=== PATIENT | female | born 1975 | race Caucasian/White ===

== ENCOUNTER 2017-02-13 01:30 | Emergency (ER) | payer SELFPAY ==
--- NOTE | 2017-02-13 02:12 | ED ORDER SUMMARY ---
..... Patient: KENRICK WAGGONER OrderSheet [facility] VisitID: [id number] [address] [place] [address] 41y, F Registration Date/Time: 02/13/2017 ORDER SHEET Weight: 78.0 kg Allergies: Penicillins, Sulfa Antibiotics, Tetanus Toxoids GENERAL ORDERS: MEDICATION ORDERS: Lidocaine Viscous PO (Solution 2 %) 15 mL (NOW) (01:02/13/2017 Manuel Bacon) (2:02 Gina R.N.) Clindamycin IM 600 mg (NOW) (:02/13/2017 Manuel Bacon) (2:02 Gina R.N.) IV FLUIDS: ORDER SHEET NOTES: [Electronically signed by Jerrod Nicholson Dr. (02:16 02/13/2017)] [Electronically signed by Marayna Long R.N. (02:02/13/2017)] [Electronically locked/signed by Maryana Long R.N. (02:02/13/2017)]
--- NOTE | 2017-02-13 02:12 | ED NURSING NOTES ---
Clinical Report - Nurses [facility] [address] [place] [address] 02/13/2017 1:32 Patient: KENRICK WAGGONER TRIAGE Triage time 01:44. Acuity: LEVEL 3. Chief Complaint: SKIN LESION. --01:48 TonyaB, R.N. 01:44 02/13/17. BP: 150/63. HR: 97. RR: 18. O2 saturation: 99%. Temp: 98.4 F. Pain level now: 07/03. --01:48 TonyaB, R.N. Weight: 78 kg. Height/Length: 68 inches. BMI: 26.2. --01:47 TonyaB, R.N. Medications None. --01:45 TonyaB, R.N. Allergies Penicillins. Sulfa Antibiotics. Tetanus Toxoids. --01:46 TonyaB, R.N. History Arrived by private vehicle. Historian: patient. This started today. ( pt has open sores on her face, right hand, abd and right thigh). 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 PAST MEDICAL HX: Last normal menstrual period- 2 weeks ago. SOCIAL HX: Light tobacco smoker- less than 1/2 a pack per day. Alcohol use; consumes beer occasionally. History of heavy drug use: methamphetamines. Recently used drugs today. No infectious disease exposure. SELF HARM ASSESSMENT: A self harm assessment was performed. The patient answered "no" to the question "Have you recently felt down, depressed, or hopeless?", "Have you noticed less interest or pleasure in doing things?", "Do you have thoughts of harming or killing yourself?", "Are you here because you tried to hurt yourself?", "Have you ever tried to hurt yourself before today?", "Have you recently had thoughts about harming or killing others?" and "Do you have any dangerous items in your possession?". FALL RISK ASSESSMENT: Fall risk assessment completed. No fall risk identified. NUTRITIONAL RISK ASSESSMENT: The nutritional risk assessment revealed no deficiencies. FUNCTIONAL ASSESSMENT: Functional assessment: no impairments noted. LEARNING NEEDS ASSESSMENT: The learning needs assessment revealed no barriers. ABUSE ASSESSMENT: Abuse assessment: The patient was asked "Do you feel safe in your home?". SKIN INTEGRITY ASSESSMENT: Skin integrity risk assessment completed. No skin integrity risk identified. --01:48 Colby Sahu PROBLEMS: no known problems. ADDITIONAL SURGERIES: Carpal Tunnel Surgery. Tonsillectomy. --01:46 Cloby Sahu Interventions ID band on patient. To treatment room. --01:48 Colby Sahu PHYSICAL ASSESSMENT Ambulatory to room. GENERAL / NEURO / PSYCH: Alert. Oriented X 4. Appears in no acute distress. HEENT: Pupils equal, round and reactive to light. No facial asymmetry noted. Mucous membranes are pink. RESPIRATORY: Respirations not labored. Chest nontender. Breath sounds within normal limits. CVS: Normal sinus rhythm noted. Capillary refill less than 2 seconds. Pulses within normal limits. GI / : Abdomen soft and nontender and normal bowel sounds. SKIN: Skin is warm and dry. Skin rash located on the face, right arm and right leg and abdomen. Normal skin turgor. Erythema to right hand. --01:49 Colby Sahu NURSING PROGRESS NOTES Patient identifiers checked. Call light placed in reach. Side rails up x 1. Bed placed in lowest position. Brakes of bed on. --01:49 Colby Sahu 02:02/13/2017 Lidocaine Viscous PO 15 mL given. Allergies verified and confirmed 5 rights. --02:02 Colby Sahu 02:02/13/2017 Clindamycin IM 600 mg given. Given in the right ventral gluteus and left ventral gluteus. Allergies verified and confirmed 5 rights. --02:02 Colby Sahu DISPOSITION / DISCHARGE Departure time: 02:21. Condition at departure: improved. No learning barriers present. Discharge instructions provided and reviewed with the patient. Reviewed medication(s) side effects, precautions, dosing and course information. Prescription(s) given to the patient. Patient verbalized understanding. Written instructions provided in Swedish. No warning instructions, treatment instructions, referrals given to the patient, diet instructions or activity restrictions. No follow up contact number given or stop smoking instructions. No work note given. The patient was discharged by the physician. She was discharged home. She left the Emergency Department ambulatory and via (walking). FALL RISK ASSESSMENT: Fall risk assessment completed. No fall risk identified. --02:22 Colby Sahu 02:22 02/13/17. BP: deferred. HR: deferred. RR: deferred. O2 saturation: deferred. Temp: deferred. Pain level now deferred. --02:22 Colby Sahu Locked/Released at 02/13/2017 2:22 by Colby Sahu
--- NOTE | 2017-02-13 02:12 | ED CLINICAL REPORT ---
Clinical Report - Physicians/Mid Levels [facility] [address] [place] [address] 02/13/2017 1:32 Patient: KENRICK WAGGONER Time Seen: 0138; initial patient contact. Arrived- By private vehicle. Historian- patient. HISTORY OF PRESENT ILLNESS Chief Complaint: SKIN RASH. This started several days ago and is still present. It was gradual in onset. It is described as itchy and painful. It has been located on the face, trunk, right upper extremity, left upper extremity and right lower extremity. It has been located on the left lower extremity. No cause has been identified. No recent medication or insect bite. Similar symptoms previously: Many times. Recent medical care: Not recently seen/assessed. REVIEW OF SYSTEMS No fever, chills, difficulty breathing, enlarged lymph nodes or nausea. No vomiting. All systems otherwise negative, except as recorded above. PAST HISTORY PROBLEMS: no known problems. SURGERIES: Carpal Tunnel Surgery. Tonsillectomy. Problems: no known problems. Medications: None. Allergies: Penicillins. Sulfa Antibiotics. Tetanus Toxoids. SOCIAL HISTORY Current every day smoker. Occasional alcohol use. History of drug use: methamphetamines. Recently used drugs today. Under influence in ED. ADDITIONAL NOTES The nursing notes have been reviewed. PHYSICAL EXAM Vital Signs: 02/13/2017 01:44 BP: 150/63. HR: 97. RR: 18. O2 saturation: 99%. Temp: 98.4 F. Pain level now: 10/10. Have been reviewed. Hypertensive. Heart rate normal. Respiratory rate normal. Temperature normal. Oxygen saturation normal. Appearance: Alert. Oriented X3. No acute distress. CVS: Normal heart rate and rhythm. Heart sounds normal. Respiratory: No respiratory distress. Breath sounds normal. Skin: No tender indurated area. Cellulitis. The rash is generalized. The rash is patchy. There is lymphangitis and weeping. No abscess. Neuro: Oriented X 3. PROGRESS AND PROCEDURES Disposition: Discharged home in good condition. Condition: good. CLINICAL IMPRESSION Cellulitis of the scalp, abdominal wall, left hand and left thigh. INSTRUCTIONS Prescription Medications: Clindamycin 300 mg: take 1 capsule orally every 6 hours for 7 days. No refill. Mupirocin 2% ointment: apply small amount to affected area three times daily until symptoms resolved. Dispense twenty-two (22) grams. No refills. Diflucan 150 mg tablets: take 1 tablet orally for 1 day. No refill. Substitution is permissible. Follow-up: Screening today revealed the patient's blood pressure to be in the hypertensive range. The patient should follow up with a primary care provider for blood pressure management. Follow-up with: [facility], , , [address], , [place], [address] Follow up in about two days. Call for an appointment. (Electronically signed by Jerrod Nicholson Dr. 02/13/2017 2:16)
--- NOTE | 2017-02-13 02:12 | ED NURSING NOTES ---
Clinical Report - Nurses [facility] [address] [place] [address] 02/13/2017 1:32 Patient: KENRICK WAGGONER TRIAGE Triage time 01:44. Acuity: LEVEL 3. Chief Complaint: SKIN LESION. --01:48 TonyaB, R.N. 01:44 02/13/17. BP: 150/63. HR: 97. RR: 18. O2 saturation: 99%. Temp: 98.4 F. Pain level now: 07/03. --01:48 TonyaB, R.N. Weight: 78 kg. Height/Length: 68 inches. BMI: 26.2. --01:47 TonyaB, R.N. Medications None. --01:45 TonyaB, R.N. Allergies Penicillins. Sulfa Antibiotics. Tetanus Toxoids. --01:46 TonyaB, R.N. History Arrived by private vehicle. Historian: patient. This started today. ( pt has open sores on her face, right hand, abd and right thigh). 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 PAST MEDICAL HX: Last normal menstrual period- 2 weeks ago. SOCIAL HX: Light tobacco smoker- less than 1/2 a pack per day. Alcohol use; consumes beer occasionally. History of heavy drug use: methamphetamines. Recently used drugs today. No infectious disease exposure. SELF HARM ASSESSMENT: A self harm assessment was performed. The patient answered "no" to the question "Have you recently felt down, depressed, or hopeless?", "Have you noticed less interest or pleasure in doing things?", "Do you have thoughts of harming or killing yourself?", "Are you here because you tried to hurt yourself?", "Have you ever tried to hurt yourself before today?", "Have you recently had thoughts about harming or killing others?" and "Do you have any dangerous items in your possession?". FALL RISK ASSESSMENT: Fall risk assessment completed. No fall risk identified. NUTRITIONAL RISK ASSESSMENT: The nutritional risk assessment revealed no deficiencies. FUNCTIONAL ASSESSMENT: Functional assessment: no impairments noted. LEARNING NEEDS ASSESSMENT: The learning needs assessment revealed no barriers. ABUSE ASSESSMENT: Abuse assessment: The patient was asked "Do you feel safe in your home?". SKIN INTEGRITY ASSESSMENT: Skin integrity risk assessment completed. No skin integrity risk identified. --01:48 Colby Sahu PROBLEMS: no known problems. ADDITIONAL SURGERIES: Carpal Tunnel Surgery. Tonsillectomy. --01:46 Colby Sahu Interventions ID band on patient. To treatment room. --01:48 Colby Sahu PHYSICAL ASSESSMENT Ambulatory to room. GENERAL / NEURO / PSYCH: Alert. Oriented X 4. Appears in no acute distress. HEENT: Pupils equal, round and reactive to light. No facial asymmetry noted. Mucous membranes are pink. RESPIRATORY: Respirations not labored. Chest nontender. Breath sounds within normal limits. CVS: Normal sinus rhythm noted. Capillary refill less than 2 seconds. Pulses within normal limits. GI / : Abdomen soft and nontender and normal bowel sounds. SKIN: Skin is warm and dry. Skin rash located on the face, right arm and right leg and abdomen. Normal skin turgor. Erythema to right hand. --01:49 Colby Sahu NURSING PROGRESS NOTES Patient identifiers checked. Call light placed in reach. Side rails up x 1. Bed placed in lowest position. Brakes of bed on. --01:49 Colby Sahu 02:02/13/2017 Lidocaine Viscous PO 15 mL given. Allergies verified and confirmed 5 rights. --02:02 Colby aShu 02:02/13/2017 Clindamycin IM 600 mg given. Given in the right ventral gluteus and left ventral gluteus. Allergies verified and confirmed 5 rights. --02:02 Colby Sahu DISPOSITION / DISCHARGE Departure time: 02:21. Condition at departure: improved. No learning barriers present. Discharge instructions provided and reviewed with the patient. Reviewed medication(s) side effects, precautions, dosing and course information. Prescription(s) given to the patient. Patient verbalized understanding. Written instructions provided in Polish. No warning instructions, treatment instructions, referrals given to the patient, diet instructions or activity restrictions. No follow up contact number given or stop smoking instructions. No work note given. The patient was discharged by the physician. She was discharged home. She left the Emergency Department ambulatory and via (walking). FALL RISK ASSESSMENT: Fall risk assessment completed. No fall risk identified. --02:22 Colby Sahu 02:22 02/13/17. BP: deferred. HR: deferred. RR: deferred. O2 saturation: deferred. Temp: deferred. Pain level now deferred. --02:22 Colby Sahu Locked/Released at 02/13/2017 2:22 by Colby Sahu
--- NOTE | 2017-02-13 02:12 | ED CLINICAL REPORT ---
Clinical Report - Physicians/Mid Levels [facility] [address] [place] [address] 02/13/2017 1:32 Patient: KENRICK WAGGONER Time Seen: 0138; initial patient contact. Arrived- By private vehicle. Historian- patient. HISTORY OF PRESENT ILLNESS Chief Complaint: SKIN RASH. This started several days ago and is still present. It was gradual in onset. It is described as itchy and painful. It has been located on the face, trunk, right upper extremity, left upper extremity and right lower extremity. It has been located on the left lower extremity. No cause has been identified. No recent medication or insect bite. Similar symptoms previously: Many times. Recent medical care: Not recently seen/assessed. REVIEW OF SYSTEMS No fever, chills, difficulty breathing, enlarged lymph nodes or nausea. No vomiting. All systems otherwise negative, except as recorded above. PAST HISTORY PROBLEMS: no known problems. SURGERIES: Carpal Tunnel Surgery. Tonsillectomy. Problems: no known problems. Medications: None. Allergies: Penicillins. Sulfa Antibiotics. Tetanus Toxoids. SOCIAL HISTORY Current every day smoker. Occasional alcohol use. History of drug use: methamphetamines. Recently used drugs today. Under influence in ED. ADDITIONAL NOTES The nursing notes have been reviewed. PHYSICAL EXAM Vital Signs: 02/13/2017 01:44 BP: 150/63. HR: 97. RR: 18. O2 saturation: 99%. Temp: 98.4 F. Pain level now: 10/10. Have been reviewed. Hypertensive. Heart rate normal. Respiratory rate normal. Temperature normal. Oxygen saturation normal. Appearance: Alert. Oriented X3. No acute distress. CVS: Normal heart rate and rhythm. Heart sounds normal. Respiratory: No respiratory distress. Breath sounds normal. Skin: No tender indurated area. Cellulitis. The rash is generalized. The rash is patchy. There is lymphangitis and weeping. No abscess. Neuro: Oriented X 3. PROGRESS AND PROCEDURES Disposition: Discharged home in good condition. Condition: good. CLINICAL IMPRESSION Cellulitis of the scalp, abdominal wall, left hand and left thigh. INSTRUCTIONS Prescription Medications: Clindamycin 300 mg: take 1 capsule orally every 6 hours for 7 days. No refill. Mupirocin 2% ointment: apply small amount to affected area three times daily until symptoms resolved. Dispense twenty-two (22) grams. No refills. Diflucan 150 mg tablets: take 1 tablet orally for 1 day. No refill. Substitution is permissible. Follow-up: Screening today revealed the patient's blood pressure to be in the hypertensive range. The patient should follow up with a primary care provider for blood pressure management. Follow-up with: [facility], , , [address], , [place], [address] Follow up in about two days. Call for an appointment. (Electronically signed by Jerrod Nicholson Dr. 02/13/2017 2:16)
--- NOTE | 2017-02-13 02:12 | ED ORDER SUMMARY ---
..... Patient: KENRICK WAGGONER OrderSheet [facility] VisitID: [id number] [address] [place] [address] 41y, F Registration Date/Time: 02/13/2017 ORDER SHEET Weight: 78.0 kg Allergies: Penicillins, Sulfa Antibiotics, Tetanus Toxoids GENERAL ORDERS: MEDICATION ORDERS: Lidocaine Viscous PO (Solution 2 %) 15 mL (NOW) (01:02/13/2017 Manuel Bacon) (2:02 Gina R.N.) Clindamycin IM 600 mg (NOW) (:02/13/2017 Manuel Bacon) (2:02 Gina R.N.) IV FLUIDS: ORDER SHEET NOTES: [Electronically signed by Jerrod Nicholson Dr. (02:16 02/13/2017)] [Electronically signed by Maryana Long R.N. (02:02/13/2017)] [Electronically locked/signed by Maryana Long R.N. (02:02/13/2017)]
--- NOTE | 2017-02-13 02:22 | ED DISCHARGE INSTRUCTIONS ---
Patient: KENRICK WAGGONER General Instructions [facility] VisitID: [id number] [address] [place] [address] 41y, F Registration Date/Time: 02/13/2017 Cellulitis of the scalp, abdominal wall, left hand and left thigh. INSTRUCTIONS Prescription Medications: Clindamycin 300 mg: take 1 capsule orally every 6 hours for 7 days. No refill. Mupirocin 2% ointment: apply small amount to affected area three times daily until symptoms resolved. Dispense twenty-two (22) grams. No refills. Diflucan 150 mg tablets: take 1 tablet orally for 1 day. No refill. Substitution is permissible. Follow-up: Screening today revealed the patient's blood pressure to be in the hypertensive range. The patient should follow up with a primary care provider for blood pressure management. Follow-up with: [facility], , , [address], , [place], [id number] Follow up in about two days. Call for an appointment. ADDITIONAL INFORMATION Cellulitis You have an infection of the skin known as cellulitis. This usually starts with a scrape, cut, insect bite, blister or other opening in the skin which becomes infected. This is a serious condition. It must be watched closely to be sure the infection is not spreading. With antibiotic treatment, the size of the red area will gradually shrink in size until the skin returns to normal. This will take 7-10 days. The red area should never increase in size once the antibiotic medicine has been started. Occasionally, an infection will be resistant to one antibiotic and another one will have to be used. Home Care: 1) Limit the use of the affected part, since excess movement can cause the infection to spread. 2) If the infection is on your leg, walk as little as possible during the first few days of the treatment. Keep your leg elevated while sitting. This will reduce swelling. 3) Take all of the antibiotic medicine exactly as directed until it is gone. Be careful not to miss any doses, especially during the first seven days. Follow Up with your doctor or this facility as directed. Check the infected area daily for the warning signs listed below. Get Prompt Medical Attention if any of the following occur: -- Spreading area of redness -- Increasing swelling or pain -- Appearance of pus or drainage -- Fever over 100.4 F (38.0 C) oral, or over 101.4 F (38.6 C) rectal, after two days on antibiotics Clindamycin Hydrochloride Oral capsule What is this medicine? CLINDAMYCIN (SUKI Boyd) is a lincosamide antibiotic. It is used to treat certain kinds of bacterial infections. It will not work for colds, flu, or other viral infections. How should I use this medicine? Take this medicine by mouth with a full glass of water. Follow the directions on the prescription label. You can take this medicine with food or on an empty stomach. If the medicine upsets your stomach, take it with food. Take your medicine at regular intervals. Do not take your medicine more often than directed. Take all of your medicine as directed even if you think your are better. Do not skip doses or stop your medicine early. Talk to your yarrow gatherer regarding the use of this medicine in children. Special care may be needed. What side effects may I notice from receiving this medicine? Side effects that you should report to your doctor or health wound care specialist as soon as possible: allergic reactions like skin rash, itching or hives, swelling of the face, lips, or tongue dark urine pain on swallowing redness, blistering, peeling or loosening of the skin, including inside the mouth unusual bleeding or bruising unusually weak or tired yellowing of eyes or skin Side effects that usually do not require medical attention (report to your doctor or health wound care specialist if they continue or are bothersome): diarrhea itching in the rectal or genital area joint pain nausea, vomiting stomach pain What may interact with this medicine? chloramphenicol erythromycin kaolin products What if I miss a dose? If you miss a dose, take it as soon as you can. If it is almost time for your next dose, take only that dose. Do not take double or extra doses. Where should I keep my medicine? Keep out of the reach of children. Store at room temperature between 20 and 25 degrees C (68 and 77 degrees F). Throw away any unused medicine after the expiration date. What should I tell my health care provider before I take this medicine? They need to know if you have any of these conditions: kidney disease liver disease stomach problems like colitis an unusual or allergic reaction to clindamycin, lincomycin, or other medicines, foods, dyes like tartrazine or preservatives or trying to get breast-feeding What should I watch for while using this medicine? Tell your doctor or healthcare professional if your symptoms do not start to get better or if they get worse. Do not treat diarrhea with over the counter products. Contact your doctor if you have diarrhea that lasts more than 2 days or if it is severe and watery. Mupirocin Topical ointment What is this medicine? MUPIROCIN (myoo PEER oh sin) is an antibiotic. It is used on the skin to treat skin infections. How should I use this medicine? This medicine is for external use only. Follow the directions on the prescription label. Wash your hands before and after use. Before applying, wash the affected area with mild soap and water and pat dry. Apply a small amount to the affected area and rub gently. You can cover the area with a gauze dressing. Do not get this medicine in your eyes. If you do, rinse out with plenty of cool tap water. Do not use your medicine more often than directed. Finish the full course of medicine prescribed by your doctor or health wound care specialist even if you think your condition is better. Do not use over large areas of burnt skin. Talk to your yarrow gatherer regarding the use of this medicine in children. Special care may be needed. What side effects may I notice from receiving this medicine? Side effects that you should report to your doctor or health wound care specialist as soon as possible: skin rash, redness, continued swelling, burning, itching, stinging, or pain Side effects that usually do not require medical attention (report to your doctor or health wound care specialist if they continue or are bothersome): dry skin, itching What may interact with this medicine? Interactions are not expected. Do not use any other skin products on the affected area without telling your doctor or health wound care specialist. What if I miss a dose? If you miss a dose, take it as soon as you can. If it is almost time for your next dose, take only that dose. Do not take double or extra doses. Where should I keep my medicine? Keep out of the reach of children. Store at room temperature between 20 and 25 degrees C (68 and 77 degrees F). Throw away any unused medicine after the expiration date. What should I tell my health care provider before I take this medicine? They need to know if you have any of these conditions: an unusual or allergic reaction to mupirocin, polyethylene glycol (PEG), or other topical antibiotic medicine or trying to get breast-feeding What should I watch for while using this medicine? Tell your doctor or health wound care specialist if your skin condition does not begin to improve within 3 to 5 days. Fluconazole Oral tablet What is this medicine? FLUCONAZOLE (floo PILO na zole) is an antifungal medicine. It is used to treat certain kinds of fungal or yeast infections. How should I use this medicine? Take this medicine by mouth. Follow the directions on the prescription label. Do not take your medicine more often than directed. Talk to your yarrow gatherer regarding the use of this medicine in children. Special care may be needed. This medicine has been used in children as young as 6 months of age. What side effects may I notice from receiving this medicine? Side effects that you should report to your doctor or health wound care specialist as soon as possible: allergic reactions like skin rash or itching, hives, swelling of the lips, mouth, tongue, or throat dark urine feeling dizzy or faint irregular heartbeat or chest pain redness, blistering, peeling or loosening of the skin, including inside the mouth trouble breathing unusual bruising or bleeding vomiting yellowing of the eyes or skin Side effects that usually do not require medical attention (report to your doctor or health wound care specialist if they continue or are bothersome): changes in how food tastes diarrhea headache stomach upset or nausea What may interact with this medicine? Do not take this medicine with any of the following medications: cisapride pimozide red yeast rice This medicine may also interact with the following medications: control pills cyclosporine diuretics like hydrochlorothiazide medicines for diabetes that are taken by mouth medicines for high cholesterol like atorvastatin, lovastatin or simvastatin phenytoin ramelteon rifabutin rifampin some medicines for anxiety or sleep tacrolimus terfenadine theophylline tofacitinib warfarin What if I miss a dose? If you miss a dose, take it as soon as you can. If it is almost time for your next dose, take only that dose. Do not take double or extra doses. Where should I keep my medicine? Keep out of the reach of children. Store at room temperature below 30 degrees C (86 degrees F). Throw away any medicine after the expiration date. What should I tell my health care provider before I take this medicine? They need to know if you have any of these conditions: electrolyte abnormalities history of irregular heart beat kidney disease an unusual or allergic reaction to fluconazole, other azole antifungals, medicines, foods, dyes, or preservatives or trying to get breast-feeding What should I watch for while using this medicine? Visit your doctor or health wound care specialist for regular checkups. If you are taking this medicine for a long time you may need blood work. Tell your doctor if your symptoms do not improve. Some fungal infections need many weeks or months of treatment to cure. Alcohol can increase possible damage to your liver. Avoid alcoholic drinks. If you have a vaginal infection, do not have sex until you have finished your treatment. You can wear a sanitary napkin. Do not use tampons. Wear freshly washed cotton, not synthetic, panties. You have been given the following additional information: Cellulitis Clindamycin Hydrochloride Oral capsule Mupirocin Topical ointment Fluconazole Oral tablet (Electronically signed by Jerrod Nicholson Dr. 02/13/2017 2:16)
--- NOTE | 2017-02-13 02:22 | ED DISCHARGE INSTRUCTIONS ---
Patient: KENRICK WAGGONER General Instructions [facility] VisitID: [id number] [address] [place] [address] 41y, F Registration Date/Time: 02/13/2017 Cellulitis of the scalp, abdominal wall, left hand and left thigh. INSTRUCTIONS Prescription Medications: Clindamycin 300 mg: take 1 capsule orally every 6 hours for 7 days. No refill. Mupirocin 2% ointment: apply small amount to affected area three times daily until symptoms resolved. Dispense twenty-two (22) grams. No refills. Diflucan 150 mg tablets: take 1 tablet orally for 1 day. No refill. Substitution is permissible. Follow-up: Screening today revealed the patient's blood pressure to be in the hypertensive range. The patient should follow up with a primary care provider for blood pressure management. Follow-up with: [facility], , , [address], , [place], [id number] Follow up in about two days. Call for an appointment. ADDITIONAL INFORMATION Cellulitis You have an infection of the skin known as cellulitis. This usually starts with a scrape, cut, insect bite, blister or other opening in the skin which becomes infected. This is a serious condition. It must be watched closely to be sure the infection is not spreading. With antibiotic treatment, the size of the red area will gradually shrink in size until the skin returns to normal. This will take 7-10 days. The red area should never increase in size once the antibiotic medicine has been started. Occasionally, an infection will be resistant to one antibiotic and another one will have to be used. Home Care: 1) Limit the use of the affected part, since excess movement can cause the infection to spread. 2) If the infection is on your leg, walk as little as possible during the first few days of the treatment. Keep your leg elevated while sitting. This will reduce swelling. 3) Take all of the antibiotic medicine exactly as directed until it is gone. Be careful not to miss any doses, especially during the first seven days. Follow Up with your doctor or this facility as directed. Check the infected area daily for the warning signs listed below. Get Prompt Medical Attention if any of the following occur: -- Spreading area of redness -- Increasing swelling or pain -- Appearance of pus or drainage -- Fever over 100.4 F (38.0 C) oral, or over 101.4 F (38.6 C) rectal, after two days on antibiotics Clindamycin Hydrochloride Oral capsule What is this medicine? CLINDAMYCIN (SUKI Boyd) is a lincosamide antibiotic. It is used to treat certain kinds of bacterial infections. It will not work for colds, flu, or other viral infections. How should I use this medicine? Take this medicine by mouth with a full glass of water. Follow the directions on the prescription label. You can take this medicine with food or on an empty stomach. If the medicine upsets your stomach, take it with food. Take your medicine at regular intervals. Do not take your medicine more often than directed. Take all of your medicine as directed even if you think your are better. Do not skip doses or stop your medicine early. Talk to your door liner regarding the use of this medicine in children. Special care may be needed. What side effects may I notice from receiving this medicine? Side effects that you should report to your doctor or health customer care agent as soon as possible: allergic reactions like skin rash, itching or hives, swelling of the face, lips, or tongue dark urine pain on swallowing redness, blistering, peeling or loosening of the skin, including inside the mouth unusual bleeding or bruising unusually weak or tired yellowing of eyes or skin Side effects that usually do not require medical attention (report to your doctor or health customer care agent if they continue or are bothersome): diarrhea itching in the rectal or genital area joint pain nausea, vomiting stomach pain What may interact with this medicine? chloramphenicol erythromycin kaolin products What if I miss a dose? If you miss a dose, take it as soon as you can. If it is almost time for your next dose, take only that dose. Do not take double or extra doses. Where should I keep my medicine? Keep out of the reach of children. Store at room temperature between 20 and 25 degrees C (68 and 77 degrees F). Throw away any unused medicine after the expiration date. What should I tell my health care provider before I take this medicine? They need to know if you have any of these conditions: kidney disease liver disease stomach problems like colitis an unusual or allergic reaction to clindamycin, lincomycin, or other medicines, foods, dyes like tartrazine or preservatives or trying to get breast-feeding What should I watch for while using this medicine? Tell your doctor or healthcare professional if your symptoms do not start to get better or if they get worse. Do not treat diarrhea with over the counter products. Contact your doctor if you have diarrhea that lasts more than 2 days or if it is severe and watery. Mupirocin Topical ointment What is this medicine? MUPIROCIN (myoo PEER oh sin) is an antibiotic. It is used on the skin to treat skin infections. How should I use this medicine? This medicine is for external use only. Follow the directions on the prescription label. Wash your hands before and after use. Before applying, wash the affected area with mild soap and water and pat dry. Apply a small amount to the affected area and rub gently. You can cover the area with a gauze dressing. Do not get this medicine in your eyes. If you do, rinse out with plenty of cool tap water. Do not use your medicine more often than directed. Finish the full course of medicine prescribed by your doctor or health customer care agent even if you think your condition is better. Do not use over large areas of burnt skin. Talk to your door liner regarding the use of this medicine in children. Special care may be needed. What side effects may I notice from receiving this medicine? Side effects that you should report to your doctor or health customer care agent as soon as possible: skin rash, redness, continued swelling, burning, itching, stinging, or pain Side effects that usually do not require medical attention (report to your doctor or health customer care agent if they continue or are bothersome): dry skin, itching What may interact with this medicine? Interactions are not expected. Do not use any other skin products on the affected area without telling your doctor or health customer care agent. What if I miss a dose? If you miss a dose, take it as soon as you can. If it is almost time for your next dose, take only that dose. Do not take double or extra doses. Where should I keep my medicine? Keep out of the reach of children. Store at room temperature between 20 and 25 degrees C (68 and 77 degrees F). Throw away any unused medicine after the expiration date. What should I tell my health care provider before I take this medicine? They need to know if you have any of these conditions: an unusual or allergic reaction to mupirocin, polyethylene glycol (PEG), or other topical antibiotic medicine or trying to get breast-feeding What should I watch for while using this medicine? Tell your doctor or health customer care agent if your skin condition does not begin to improve within 3 to 5 days. Fluconazole Oral tablet What is this medicine? FLUCONAZOLE (floo PILO na zole) is an antifungal medicine. It is used to treat certain kinds of fungal or yeast infections. How should I use this medicine? Take this medicine by mouth. Follow the directions on the prescription label. Do not take your medicine more often than directed. Talk to your door liner regarding the use of this medicine in children. Special care may be needed. This medicine has been used in children as young as 6 months of age. What side effects may I notice from receiving this medicine? Side effects that you should report to your doctor or health customer care agent as soon as possible: allergic reactions like skin rash or itching, hives, swelling of the lips, mouth, tongue, or throat dark urine feeling dizzy or faint irregular heartbeat or chest pain redness, blistering, peeling or loosening of the skin, including inside the mouth trouble breathing unusual bruising or bleeding vomiting yellowing of the eyes or skin Side effects that usually do not require medical attention (report to your doctor or health customer care agent if they continue or are bothersome): changes in how food tastes diarrhea headache stomach upset or nausea What may interact with this medicine? Do not take this medicine with any of the following medications: cisapride pimozide red yeast rice This medicine may also interact with the following medications: control pills cyclosporine diuretics like hydrochlorothiazide medicines for diabetes that are taken by mouth medicines for high cholesterol like atorvastatin, lovastatin or simvastatin phenytoin ramelteon rifabutin rifampin some medicines for anxiety or sleep tacrolimus terfenadine theophylline tofacitinib warfarin What if I miss a dose? If you miss a dose, take it as soon as you can. If it is almost time for your next dose, take only that dose. Do not take double or extra doses. Where should I keep my medicine? Keep out of the reach of children. Store at room temperature below 30 degrees C (86 degrees F). Throw away any medicine after the expiration date. What should I tell my health care provider before I take this medicine? They need to know if you have any of these conditions: electrolyte abnormalities history of irregular heart beat kidney disease an unusual or allergic reaction to fluconazole, other azole antifungals, medicines, foods, dyes, or preservatives or trying to get breast-feeding What should I watch for while using this medicine? Visit your doctor or health customer care agent for regular checkups. If you are taking this medicine for a long time you may need blood work. Tell your doctor if your symptoms do not improve. Some fungal infections need many weeks or months of treatment to cure. Alcohol can increase possible damage to your liver. Avoid alcoholic drinks. If you have a vaginal infection, do not have sex until you have finished your treatment. You can wear a sanitary napkin. Do not use tampons. Wear freshly washed cotton, not synthetic, panties. You have been given the following additional information: Cellulitis Clindamycin Hydrochloride Oral capsule Mupirocin Topical ointment Fluconazole Oral tablet (Electronically signed by Jerrod Nicholson Dr. 02/13/2017 2:16)
--- NOTE | 2017-02-13 02:23 | ED MAR SUMMARY ---
..... Medication Administration Record [facility] [address] [place] [address] Patient: KENRICK WAGGONER Visit ID: [id number] 41y, F Weight: 78.0 kg Height/Length: 68 in BMI: 26.2 ALLERGIES: Penicillins, Sulfa Antibiotics, Tetanus Toxoids Given 02:02/13/2017 Adelina, R.N. Medication Administered: LIDOCAINE VISCOUS [PO], Dose: 15 mL PO. Medication Ordered: Lidocaine Viscous PO (Solution 2 %) 15 mL (NOW). Given 02:02/13/2017 Adelina, R.N. Medication Administered: CLINDAMYCIN [IM], Dose: 600 mg IM. Medication Ordered: Clindamycin IM 600 mg (NOW).
--- NOTE | 2017-02-13 02:23 | ED MED RECONCILIATION SUMMARY ---
Patient: KENRICK WAGGONER Medication Reconciliation Report [facility] VisitID: [id number] [address] [place] [address] 41y, F Registration Date/Time: 02/13/2017 Weight: 78.0 kg Height/Length: 68 in. BMI: 26.2 ALLERGIES: Penicillins, Sulfa Antibiotics, Tetanus Toxoids The patient's Home Medications are listed below: NONE. The source(s) of the original Home Medication information: Not obtained. The following Medications were given to the patient in the Emergency Department: Lidocaine Viscous [PO] PO 15 mL, administered: 02/13/2017 2:02:00 AM Clindamycin [IM] IM 600 mg, administered: 02/13/2017 2:02:00 AM The following Medications were prescribed to the patient: Clindamycin 300 mg: take 1 capsule orally every 6 hours for 7 days. No refill. -- Jerrod Nicholson Dr. Mupirocin 2% ointment: apply small amount to affected area three times daily until symptoms resolved. Dispense twenty-two (22) grams. No refills. -- Jerrod Nicholson Dr. Diflucan 150 mg tablets: take 1 tablet orally for 1 day. No refill. Substitution is permissible. -- Jerrod Nicholson Dr.
--- NOTE | 2017-02-13 02:23 | ED MAR SUMMARY ---
..... Medication Administration Record [facility] [address] [place] [address] Patient: KENRICK WAGGONER Visit ID: [id number] 41y, F Weight: 78.0 kg Height/Length: 68 in BMI: 26.2 ALLERGIES: Penicillins, Sulfa Antibiotics, Tetanus Toxoids Given 02:02/13/2017 Adelina, R.N. Medication Administered: LIDOCAINE VISCOUS [PO], Dose: 15 mL PO. Medication Ordered: Lidocaine Viscous PO (Solution 2 %) 15 mL (NOW). Given 02:02/13/2017 Adelina, R.N. Medication Administered: CLINDAMYCIN [IM], Dose: 600 mg IM. Medication Ordered: Clindamycin IM 600 mg (NOW).
--- NOTE | 2017-02-13 02:23 | ED MED RECONCILIATION SUMMARY ---
Patient: KENRICK WAGGONER Medication Reconciliation Report [facility] VisitID: [id number] [address] [place] [address] 41y, F Registration Date/Time: 02/13/2017 Weight: 78.0 kg Height/Length: 68 in. BMI: 26.2 ALLERGIES: Penicillins, Sulfa Antibiotics, Tetanus Toxoids The patient's Home Medications are listed below: NONE. The source(s) of the original Home Medication information: Not obtained. The following Medications were given to the patient in the Emergency Department: Lidocaine Viscous [PO] PO 15 mL, administered: 02/13/2017 2:02:00 AM Clindamycin [IM] IM 600 mg, administered: 02/13/2017 2:02:00 AM The following Medications were prescribed to the patient: Clindamycin 300 mg: take 1 capsule orally every 6 hours for 7 days. No refill. -- Jerrod Nicholson Dr. Mupirocin 2% ointment: apply small amount to affected area three times daily until symptoms resolved. Dispense twenty-two (22) grams. No refills. -- Jerrod Nicholson Dr. Diflucan 150 mg tablets: take 1 tablet orally for 1 day. No refill. Substitution is permissible. -- Jerrod Nicholson Dr.
== END 2017-02-13 02:20 | disposition home or self-care (01) ==
LOC: ED SRH 01:30
DX: L03.811 Cellulitis of head [any part, except face] (principal); L03.311 Cellulitis of abdominal wall; L03.114 Cellulitis of left upper limb; L03.116 Cellulitis of left lower limb; F15.10 Other stimulant abuse, uncomplicated; Z88.0 Allergy status to penicillin; Z88.2 Allergy status to sulfonamides; Z88.8 Allergy status to other drugs, medicaments and biological substances; F17.200 Nicotine dependence, unspecified, uncomplicated

== ENCOUNTER 2017-03-03 02:20 | Emergency (ER) | payer OTHER ==
--- NOTE | 2017-03-03 04:48 | ED NURSING NOTES ---
Clinical Report - Nurses [facility] [place] [address] [place] [address] 03/03/2017 2:21 Patient: KENRICK WAGGONER TRIAGE Triage time 02:27. Acuity: LEVEL 3. Chief Complaint: ABDOMINAL PAIN and VAGINAL BLEEDING. 02:49. Alert. --02:49 Zenon Tyson R.N. 02:27 03/03/17. BP: 133/62. HR: 99. RR: 18. O2 saturation: 100% on room air. Temp: 98.4 F (oral). Pain level now: 06/03. --02:49 Zenon Tyson R.N. Weight: 78.4 kg stated. Height/Length: 68 inches Per Patient. BMI: 26.3. --02:37 Zenon Tyson R.N. Medications None. --02:36 Zenon Tyson R.N. Allergies Penicillins. Sulfa Antibiotics. Tetanus Toxoids. --02:36 Zenon Tyson R.N. History Arrived by private vehicle. Historian: patient. Accompanied by friend. Primary physician (None). This started yesterday. Treatment ZINC MINER BLASTING: Took Tylenol. PAST MEDICAL HX: Immunizations: up-to-date. Last normal menstrual period was 2 weeks ago. SOCIAL HX: Current every day heavy tobacco smoker- 1 pack per day. Occasional alcohol use. History of occasional drug use: heroin, methamphetamines, marijuana. No recent travel. No infectious disease exposure. ABUSE ASSESSMENT: No report of abuse. FALL RISK ASSESSMENT: Fall risk assessment completed. No fall risk identified. NUTRITIONAL RISK ASSESSMENT: The nutritional risk assessment revealed no deficiencies. FUNCTIONAL ASSESSMENT: Functional assessment: no impairments noted. LEARNING NEEDS ASSESSMENT: The learning needs assessment revealed no barriers. SKIN INTEGRITY ASSESSMENT: Skin integrity risk assessment completed. No skin integrity risk identified. --02:49 Zenon Tyson R.N. ( Patient reports the vaginal bleeding is much like a heavy period). --02:50 Zenon Tyson R.N. PROBLEMS: Ankylosing Spondylitis. Fibromyalgia. Cellulitis. --02:37 Zenon Tyson R.N. ADDITIONAL SURGERIES: Carpal Tunnel Surgery. Tonsillectomy. --02:37 Zenon Tyson R.N. Interventions ID band on patient. To treatment room. --02:49 Zenon Tyson R.N. PHYSICAL ASSESSMENT Ambulatory to room. Patient gowned. GENERAL / NEURO / PSYCH: Alert. Oriented X 4. HEENT: Mucous membranes are pink. RESPIRATORY: Respirations not labored. SKIN: Skin is warm and dry. --02:51 Zenon Tyosn R.N. NURSING PROGRESS NOTES 02:28 Patient to restroom to obtain urine sample. --02:28 Zenon Tyson R.N. 02:33 Unable to provide urine sample. --02:34 Zenon Tyson R.N. 02:34. Two patient identifiers checked. Call light placed in reach. Bed placed in lowest position. Brakes of bed on. Patient ready for evaluation- chart flagged. --02:34 Zenon Tyson R.N. 02:44 03/03/2017 Site #1 started via IV in the left wrist with an 20g angiocath, with aseptic technique and good blood return; one attempt. Blood drawn: rainbow set. Labeled in the presence of the patient and sent to the lab. Saline lock flushed with 10 mL saline. --02:53 Zenon Tyson R.N. 02:53 03/03/2017 Started bag #1 1000 mL IV Fluids IV NS (Saline); at 1000 mL/hr over 1 hour(s) via site #1 --02:53 Zenon Tyson R.N. 03:19 03/03/2017 PHENERGAN (Promethazine HCl) IVP 25 mg given over 2 minute(s) via site #1. Allergies verified and confirmed 5 rights. IV patency established. IV site checked: no pain, redness, or swelling. IV flushed thoroughly pre- and post-medication administration. --03:24 Zenon Tyson R.N. 03:21 03/03/2017 Dilaudid (HYDROmorphone HCl PF) IVP 1 mg given over 2 minute(s) via site #1. Allergies verified, confirmed 5 rights and sedative warning given to the patient and patient's rn lpn lvn. IV patency established. IV site checked: no pain, redness, or swelling. IV flushed thoroughly pre- and post-medication administration. --03:24 Zenon Tyson R.N. 04:02 03/03/2017 IV Fluids IV NS Discontinued: bag #1 infused. Total amount infused: 1000 mL. IV patency established. IV site checked: no pain, redness, or swelling. IV flushed thoroughly. --04:07 Zenon Tyson R.N. 04:01 feminine pad and mesh undergarment given to pt. --04:13 Zenon Tyson R.N. 04:07 Socks placed on pt's feet, assisted to restroom to collect urine sample. --04:08 Zenon Tyson R.N. 04:15. Patient ID band checked for patient name and birthdate: patient confirmed. Clean catch urine collected with return of yellow-colored clear urine; sample sent to lab for urinalysis and HCG. Specimen labeled in the presence of the patient. --04:22 Zenon Tyson R.N. 04:18 03/03/2017 Dilaudid (HYDROmorphone HCl PF) IVP 1 mg given over 2 minute(s) via site #1. Allergies verified, confirmed 5 rights and sedative warning given to the patient. IV patency established. IV site checked: no pain, redness, or swelling. IV flushed thoroughly pre- and post-medication administration. --04:22 Zenon Tyson R.N. 04:20 03/03/2017 Benadryl (DiphenhydrAMINE HCl) IVP 25 mg given over 2 minute(s) via site #1. Allergies verified, confirmed 5 rights and sedative warning given to the patient. IV patency established. IV site checked: no pain, redness, or swelling. IV flushed thoroughly pre- and post-medication administration. --04:23 Zenon Tyson R.N. 04:20 nuclear chemistry technician with pt for exam. --04:23 Zenon Tyson R.N. 05:06. The patient is calm and resting quietly. Overall patient status is improved- she states feels better. SKIN: Skin is warm and dry. Skin color within normal limits. --05:11 Zenon Tyson R.N. DISPOSITION / DISCHARGE 04:59 03/03/2017 Site #1 removed upon discharge. Catheter intact. Bandage applied. --05:03 Zenon Tyson R.N. Departure time: 05:10. Condition at departure: stable. No learning barriers present. Discharge instructions provided and reviewed with the patient. Reviewed medication(s) side effects, precautions, dosing and course information. Prescription(s) given to the patient. Patient verbalized understanding. Written instructions provided in Upper Sorbian. The patient was discharged home and accompanied by rn lpn lvn. She left the Emergency Department ambulatory and via private vehicle. Certified Endoscopy Technician driving. FALL RISK ASSESSMENT: Fall risk assessment completed. No fall risk identified. --05:10 Zenon Tyson R.N. 04:58 03/03/17. BP: 134/79. HR: 90. RR: 15. O2 saturation: 99% on room air. Pain level now: 11/03. --05:10 Zenon Tyson R.N. Locked/Released at 03/03/2017 5:14 by Zenon Tyson R.N.
--- NOTE | 2017-03-03 04:48 | ED CLINICAL REPORT ---
Clinical Report - Physicians/Mid Levels [facility] [address] [place] [address] 03/03/2017 2:21 Patient: KENRICK WAGGONER Time Seen: 251. Arrived- By private vehicle. Historian- patient. HISTORY OF PRESENT ILLNESS Chief Complaint: ABDOMINAL PAIN. At its maximum, severity described as moderate. When seen in the E.D., severity described as moderate. Modifying factors- (worse possibly with food but is not totally sure.). Not relieved by anything. It is described as sharp. No radiation. It is described as located in the epigastric area. This started past few days and is still present. It was abrupt in onset and has been intermittent but is not gone now. The patient has had nausea. No loss of appetite, vomiting or diarrhea. No recent travel. Similar symptoms previously: None. Recent medical care: Not recently seen/assessed. REVIEW OF SYSTEMS All systems otherwise negative, except as recorded above. PAST HISTORY See nurses notes. SOCIAL HISTORY Smoker- current status unknown. Occasional alcohol use. History of drug use. No recent travel. Is a local resident. FAMILY HISTORY (family hx of kidney stones). ADDITIONAL NOTES The nursing notes have been reviewed. PHYSICAL EXAM Vital Signs: 03/03/2017 02:27 BP: 133/62. HR: 99. RR: 18. O2 saturation: 100%. Temp: 98.4 F. Pain level now: 9/10. Blood pressure normal. Oxygen saturation normal. Appearance: Alert. Oriented X3. No acute distress. Eyes: Pupils equal, round and reactive to light. Eyes normal inspection. ENT: Ears normal. Nose normal. Pharynx normal. Neck: Normal inspection. Neck supple. No meningeal signs. CVS: Normal heart rate and rhythm. Heart sounds normal. Pulses normal. Respiratory: No respiratory distress. Breath sounds normal. Chest nontender. No rales, rhonchi or wheezes. Abdomen: Soft and nontender. Bowel sounds normal. Back: No CVA tenderness. Skin: Skin warm and dry. Normal skin color. No rash. Normal skin turgor. Extremities: Extremities exhibit normal ROM. No lower extremity edema. Neuro: Oriented X 3. No motor deficit. No sensory deficit. LABS, X-RAYS, AND EKG Abdominal Sonogram: (PROCEDURE: US ABDOMEN ULTRASOUND-LIMITED INDICATION: RUQ PAIN TECHNIQUE: Clayton scale and color Doppler sonographic images of the abdomen were obtained. COMPARISON: None. FINDINGS: Gallbladder is normal. No evidence of gallstones. Common duct is normal (6 mm). Portions of the liver, pancreas, aorta, and right kidney are seen, and are normal. IMPRESSION: 1. Negative ultrasound of the gallbladder and right upper quadrant.). Laboratory Tests: UA-Culture if indicated: (DANIEL: 03/03/2017 04:15) ( [facility] 03/03/2017 04:45) Final results Test Result Flag Units (Reference) URINE COLOR YELLOW URINE APPEARANCE CLEAR URINE GLUCOSE NEGATIVE (NEGATIVE) URINE BILIRUBIN NEGATIVE (NEGATIVE) URINE KETONE NEGATIVE (NEGATIVE) URINE SPECIFIC GRAVITY <= 1.005 L (1.010-1.030) URINE PH 6.0 (5.0-8.0) URINE PROTEIN NEGATIVE (NEGATIVE) URINE UROBILINOGEN 0.2 EU/dL (0.2-1.0) URINE NITRITE NEGATIVE (NEGATIVE) URINE BLOOD 2+ (NEGATIVE) URINE LEUK ESTERASE TRACE (NEGATIVE) URINE RBC 5-10 rbc/hpf (0-1) URINE WBC 5-10 wbc/hpf (0-1) URINE EPITHELIAL CELLS 1-3 EPI/hpf (0-5) URINE BACTERIA FEW (1+) (NONE SEEN) URINE COMMENT CULTURE INDICATED URINE CULTURES ARE SET-UP BASED ON THE FOLLOWING CRITERIA:POSITIVE NITRITEPOSITIVE LEUKOCYTE ESTERASEGREATER THAN 10 WHITE BLOOD CELLSMODERATE (2+) OR GREATER BACTERIA Urine: (DANIEL: 03/03/2017 04:15) ( [facility] 03/03/2017 04:40) Final results Test Result Flag Units (Reference) URINE NEGATIVE CBC w Diff: (DANIEL: 03/03/2017 02:40) ( [facility] 03/03/2017 02:59) Final results Test Result Flag Units (Reference) WHITE BLOOD COUNT 14.2 H K/uL (4.5-11.5) RED BLOOD COUNT 4.59 M/uL (4.00-5.20) HEMOGLOBIN 11.5 L gm/dL (12.0-16.0) HEMATOCRIT 36.6 % (36.0-46.0) MEAN CELL VOLUME 80 fL (80-100) MEAN CORPUSCULAR HGB 25 L pg (26-34) MEAN CORPUSCULAR HGB CONC 31 g/dL (31-37) RED CELL DISTRIBUTION WIDTH 17.0 H % (11.6-14.8) PLATELET COUNT 362 K/uL (150-400) NEUTROPHIL % 59.3 % (50-75) LYMPH % 27.0 % (25-40) MONO % 11.5 % (3-14) EOSINOPHIL % 1.7 % (0-4) BASOPHIL % 0.5 % (0-2) Lipase: (DANIEL: 03/03/2017 02:40) ( [facility] 03/03/2017 03:14) Final results Test Result Flag Units (Reference) LIPASE 154 U/L (73-393) AMYLASE 48 U/L (25-115) CMP: (DANIEL: 03/03/2017 02:40) ( [facility] 03/03/2017 03:07) Final results Test Result Flag Units (Reference) GLUCOSE 112 H mg/dL (70-110) BUN 14 mg/dL (7-18) CREATININE 0.9 mg/dL (0.6-1.3) Estimated GFR >60 mL/min Estimated GFR- >60 mL/min Note: Persistent reduction over 3 months in eGFR<60 mL/min/1.73 m2 defines CKD. Patients with eGFR values>=60 mL/min/1.73 m2 may also have CKD if evidence ofpersistent proteinuria. Additional information may be foundat www.kidney.org. SODIUM 140 mmol/L (136-145) POTASSIUM 4.3 mmol/L (3.5-5.1) CHLORIDE 104 mmol/L (98-107) CARBON DIOXIDE 29 mmol/L (21-32) CALCIUM 8.8 mg/dL (8.5-10.1) TOTAL PROTEIN 8.8 H g/dL (6.4-8.2) ALBUMIN 2.9 L g/dL (3.3-5.0) BILIRUBIN, TOTAL 0.2 mg/dL (0.0-1.0) ALKALINE PHOSPHATASE 120 H U/L (46-116) AST (SGOT) 21 U/L (15-37) ALT (SGPT) 31 U/L (12-78) Culture, Urine: (DNAIEL: 03/03/2017 04:15) ( [facility] 03/05/2017 12:22) Final results Test Result Flag Units (Reference) CULTURE, URINE DATE: 03/05/17 PRELIM REPORT: FINAL REPORT -- ESCCOL QUANTITATIVE URINE GROWTH: 50,000 TO 100,000 CFU/mL AMOXICILLIN/CLAVULANATE AMPICILLIN S AMPICILLIN/SULBACTAM S CEFAZOLIN S CEFTRIAXONE S CEFEPIME S CEFUROXIME CIPROFLOXACIN S ERTAPENEM S GENTAMICIN S IMIPENEM S LEVOFLOXACIN S MEROPENEM S NITROFURANTOIN S TETRACYCLINE PIP/TAZO S TRIMETHOPRIM/SULFAMETHOXAZOLE S . PROGRESS AND PROCEDURES Course of Care: the patient is a 41-year-old female with past medical history significant for substance abuse and alkalosis and spondylitis presented for evaluation of epigastric abdominal pain. At this time differential diagnosis includes pericarditis, biliary colic, urinary tract infection. Patient will be evaluated with ultrasound of the epigastrium and right upper quadrant. Patient is agreeable to the treatment and plan. Patient reports intolerance to other pain medications such as morphine. Patient will be given Dilaudid. Patient is agreeable to the treatment and plan. The patient's vertigo was a markable for the findings above. Blood in the urinalysis is consistent with patient on her current menstrual cycle. Patient without any CVA tenderness. Did feel that this is renal colic in nature. We'll await urine cultures for treatment of UTI. No other findings noted on patient's examination. Patient is noted to have significant improvement with pain while here in the emergency department. Patient did need a second dose of pain medication as well as Benadryl for the nausea. because the patient's overall nontoxic appearance and repeat examination is benign as well as negative workup in the emergency department, did not the patient is admitted to the hospital or further emergency department workup/evaluation. Patient has a nonsurgical abdomen. I discussion with the patient in regards to possible causes for her abdominal pain. Discussed with the patient her workup. Emergency department including diagnosis, home care, follow-up, and return precautions. All questions have been answered. The patient expressed understanding of these instructions and was agreeable to them. CLINICAL IMPRESSION Acute epigastric abdominal pain. 03/03/2017 02:27 BP: 133/62. HR: 99. RR: 18. O2 saturation: 100%. Temp: 98.4 F. Pain level now: 9/10. Moderate nausea. Blood pressure normal. Oxygen saturation normal. INSTRUCTIONS Warnings: GENERAL WARNINGS: Return or contact your physician immediately if your condition worsens or changes unexpectedly, if not improving as expected, or if other problems arise. SPECIFICALLY, return if you develop pain, fever, vomiting, the inability to keep fluids down, blood in vomitus, blood in diarrhea, fainting or lightheadedness. Your Current Medications: CONTINUE TAKING THE FOLLOWING MEDICATIONS: None*. Prescription Medications: Zofran (orally disintegrating tablets) 4 mg: take 1 orally every 8 hours as needed for nausea and vomiting. Dispense ten (10). No refill. Substitution is permissible. Phenergan 25 mg suppositories: insert 1 rectally every 8 hours. Dispense twenty (20). No refill. Substitution is permissible. (as needed for break through nausea) Protonix 20 mg tablets: take 1 tablet orally every 12 hours for 2 weeks. Dispense twenty-eight (28). No refill. Substitution is permissible. Follow-up: Return to the emergency department as needed. Follow up with your doctor in three days. Reason for referral: recheck today's concerns. Summary of care provided to patient via paper. Screening today revealed the patient's blood pressure to be in the normal range. The patient should follow up with a primary care provider for blood pressure management. Understanding of the discharge instructions verbalized by patient. Follow-up with: [facility], , , [address], , [place], [id number] Follow up in three days. Reason for referral: contact if you do not have a primary care doctor (PCP). Summary of care provided to patient via paper. (Electronically signed by Moody Finch Dr. 03/06/2017 15:12) Addenda for KENRICK WAGGONER VisitID: [id number] Date: 03/03/2017 03/04/2017 18:31 Phone call placed to patient, unable to leave message at [phone], "not accepting calls" message received from her phone. Pt will need to start Bactrim DS 1 po [id number] #[id number], prescribed by JOAQUIN Menjivar. (Electronically signed by Dalia Payan R.N. - 03/04/2017 18:31) 03/05/2017 10:31 attempted to contact pt again @[phone], the message is the person is not accepting calls, will have certified letter sent (Electronically signed by Bozena Hare R.N. - 03/05/2017 10:31) 03/05/2017 14:48 certified letter [id number] sent to patient. (Electronically signed by Virgen Terrazas R.N. - 03/05/2017 14:48)
--- NOTE | 2017-03-03 04:48 | ED ORDER SUMMARY ---
..... Patient: KENRICK WAGGONER OrderSheet [facility] VisitID: [id number] [place] [address] 41y, F Registration Date/Time: 03/03/2017 ORDER SHEET Weight: 78.4 kg (stated) Allergies: Penicillins, Sulfa Antibiotics, Tetanus Toxoids GENERAL ORDERS: CBC w Diff Urgent (02:52 03/03/2017 JQuivey R.N. per protocol) (Ack 2:55 [facility] Recorder) (2:57 JQuivey R.N.) CMP Urgent (02:52 03/03/2017 JQuivey R.N. per protocol) (Ack 2:55 [address] Electronic [address] Recorder) (2:57 JQuivey R.N.) UA-Culture if indicated Urgent (02:52 03/03/2017 JQuivey R.N. per protocol) (Ack 2:55 [address] Recorder) (4:30 JQuivey R.N.) Urine Urgent (02:52 03/03/2017 JQuivey R.N. per protocol) (Ack 2:55 [address] Recorder) (4:30 JQuivey R.N.) Amylase Urgent (02:57 03/03/2017 JQuivey R.N. per protocol) (Ack 2:59 [facility] [address] Electronic [address] Recorder) (3:10 JQuivey R.N.) Lipase Urgent (02:57 03/03/2017 JQuivey R.N. per protocol) (Ack 2:59 [facility] Electronic [address] Recorder) (3:10 JQuivey R.N.) US Abdomen Limited (No) Urgent (03:12 03/03/2017 Sheri Bacon) (Ack 3:13 [facility] Electronic [address] Recorder) (5:02 [facility] Electronic Court Recorder) MEDICATION ORDERS: Phenergan IV 25 mg (HIGH ALERT MEDICATION) (03:17 03/03/2017 Sheri Bacno) (Ack 3:19 JQuivey R.N.) (3:24 JQuivey R.N.) IV FLUIDS: IV NS : initial bolus none -, then 1000 mL/hr (NOW) (02:52 03/03/2017 JQuivey R.N. per protocol) (2:53 JQuivey R.N.) Dilaudid IV 1 mg (HIGH ALERT MEDICATION, NOW) (03:18 03/03/2017 Sheri Bacon) (Ack 3:19 JQuivey R.N.) (3:24 JQuivey R.N.) Dilaudid IV 1 mg (HIGH ALERT MEDICATION, NOW) (04:16 03/03/2017 Sheri Bacon) (4:22 JQuivey R.N.) Benadryl IV 25 mg (NOW) (04:17 03/03/2017 Sheri Bacon) (4:23 JQuivey R.N.) ORDER SHEET NOTES: [Electronically signed by Zenon Tyson R.N. (05:14 03/03/2017)] [Electronically signed by Moody Finch Dr. (15:12 03/06/2017)] [Electronically locked/signed by Zenon Tyson R.N. (05:14 03/03/2017)]
--- NOTE | 2017-03-03 04:48 | ED ORDER SUMMARY ---
..... Patient: KENRICK WAGGONER OrderSheet [facility] VisitID: [id number] [place] [address] 41y, F Registration Date/Time: 03/03/2017 ORDER SHEET Weight: 78.4 kg (stated) Allergies: Penicillins, Sulfa Antibiotics, Tetanus Toxoids GENERAL ORDERS: CBC w Diff Urgent (02:52 03/03/2017 JQuivey R.N. per protocol) (Ack 2:55 CHagerty ER Radio Repair Teacher) (2:57 JQuivey R.N.) CMP Urgent (02:52 03/03/2017 JQuivey R.N. per protocol) (Ack 2:55 CHagerty ER Radio Repair Teacher) (2:57 JQuivey R.N.) UA-Culture if indicated Urgent (02:52 03/03/2017 JQuivey R.N. per protocol) (Ack 2:55 CHagerty ER Radio Repair Teacher) (4:30 JQuivey R.N.) Urine Urgent (02:52 03/03/2017 JQuivey R.N. per protocol) (Ack 2:55 CHagerty ER Radio Repair Teacher) (4:30 JQuivey R.N.) Amylase Urgent (02:57 03/03/2017 JQuivey R.N. per protocol) (Ack 2:59 CHagerty ER Radio Repair Teacher) (3:10 JQuivey R.N.) Lipase Urgent (02:57 03/03/2017 JQuivey R.N. per protocol) (Ack 2:59 CHagerty ER Radio Repair Teacher) (3:10 JQuivey R.N.) US Abdomen Limited (No) Urgent (03:12 03/03/2017 Sheri Bacon) (Ack 3:13 CHagerty ER Radio Repair Teacher) (5:02 CHagerty ER Radio Repair Teacher) MEDICATION ORDERS: Phenergan IV 25 mg (HIGH ALERT MEDICATION) (03:17 03/03/2017 Sheri Bacon) (Ack 3:19 JQuivey R.N.) (3:24 JQuivey R.N.) IV FLUIDS: IV NS : initial bolus none -, then 1000 mL/hr (NOW) (02:52 03/03/2017 JQuivey R.N. per protocol) (2:53 JQuivey R.N.) Dilaudid IV 1 mg (HIGH ALERT MEDICATION, NOW) (03:18 03/03/2017 Sheri Bacon) (Ack 3:19 JQuivey R.N.) (3:24 JQuivey R.N.) Dilaudid IV 1 mg (HIGH ALERT MEDICATION, NOW) (04:16 03/03/2017 Sheri Bacon) (4:22 JQuivey R.N.) Benadryl IV 25 mg (NOW) (04:17 03/03/2017 Sheri Bacon) (4:23 JQuivey R.N.) ORDER SHEET NOTES: [Electronically signed by Zenon Tyson R.N. (05:14 03/03/2017)] [Electronically signed by Moody Finch Dr. (15:12 03/06/2017)] [Electronically locked/signed by Zenon Tyson R.N. (05:14 03/03/2017)]
--- NOTE | 2017-03-03 04:48 | ED CLINICAL REPORT ---
Clinical Report - Physicians/Mid Levels [facility] [address] [place] [address] 03/03/2017 2:21 Patient: KENRICK WAGGONER Time Seen: 251. Arrived- By private vehicle. Historian- patient. HISTORY OF PRESENT ILLNESS Chief Complaint: ABDOMINAL PAIN. At its maximum, severity described as moderate. When seen in the E.D., severity described as moderate. Modifying factors- (worse possibly with food but is not totally sure.). Not relieved by anything. It is described as sharp. No radiation. It is described as located in the epigastric area. This started past few days and is still present. It was abrupt in onset and has been intermittent but is not gone now. The patient has had nausea. No loss of appetite, vomiting or diarrhea. No recent travel. Similar symptoms previously: None. Recent medical care: Not recently seen/assessed. REVIEW OF SYSTEMS All systems otherwise negative, except as recorded above. PAST HISTORY See nurses notes. SOCIAL HISTORY Smoker- current status unknown. Occasional alcohol use. History of drug use. No recent travel. Is a local resident. FAMILY HISTORY (family hx of kidney stones). ADDITIONAL NOTES The nursing notes have been reviewed. PHYSICAL EXAM Vital Signs: 03/03/2017 02:27 BP: 133/62. HR: 99. RR: 18. O2 saturation: 100%. Temp: 98.4 F. Pain level now: 9/10. Blood pressure normal. Oxygen saturation normal. Appearance: Alert. Oriented X3. No acute distress. Eyes: Pupils equal, round and reactive to light. Eyes normal inspection. ENT: Ears normal. Nose normal. Pharynx normal. Neck: Normal inspection. Neck supple. No meningeal signs. CVS: Normal heart rate and rhythm. Heart sounds normal. Pulses normal. Respiratory: No respiratory distress. Breath sounds normal. Chest nontender. No rales, rhonchi or wheezes. Abdomen: Soft and nontender. Bowel sounds normal. Back: No CVA tenderness. Skin: Skin warm and dry. Normal skin color. No rash. Normal skin turgor. Extremities: Extremities exhibit normal ROM. No lower extremity edema. Neuro: Oriented X 3. No motor deficit. No sensory deficit. LABS, X-RAYS, AND EKG Abdominal Sonogram: (PROCEDURE: US ABDOMEN ULTRASOUND-LIMITED INDICATION: RUQ PAIN TECHNIQUE: Clayton scale and color Doppler sonographic images of the abdomen were obtained. COMPARISON: None. FINDINGS: Gallbladder is normal. No evidence of gallstones. Common duct is normal (6 mm). Portions of the liver, pancreas, aorta, and right kidney are seen, and are normal. IMPRESSION: 1. Negative ultrasound of the gallbladder and right upper quadrant.). Laboratory Tests: UA-Culture if indicated: (DANIEL: 03/03/2017 04:15) ( [facility] 03/03/2017 04:45) Final results Test Result Flag Units (Reference) URINE COLOR YELLOW URINE APPEARANCE CLEAR URINE GLUCOSE NEGATIVE (NEGATIVE) URINE BILIRUBIN NEGATIVE (NEGATIVE) URINE KETONE NEGATIVE (NEGATIVE) URINE SPECIFIC GRAVITY <= 1.005 L (1.010-1.030) URINE PH 6.0 (5.0-8.0) URINE PROTEIN NEGATIVE (NEGATIVE) URINE UROBILINOGEN 0.2 EU/dL (0.2-1.0) URINE NITRITE NEGATIVE (NEGATIVE) URINE BLOOD 2+ (NEGATIVE) URINE LEUK ESTERASE TRACE (NEGATIVE) URINE RBC 5-10 rbc/hpf (0-1) URINE WBC 5-10 wbc/hpf (0-1) URINE EPITHELIAL CELLS 1-3 EPI/hpf (0-5) URINE BACTERIA FEW (1+) (NONE SEEN) URINE COMMENT CULTURE INDICATED URINE CULTURES ARE SET-UP BASED ON THE FOLLOWING CRITERIA:POSITIVE NITRITEPOSITIVE LEUKOCYTE ESTERASEGREATER THAN 10 WHITE BLOOD CELLSMODERATE (2+) OR GREATER BACTERIA Urine: (DANIEL: 03/03/2017 04:15) ( [facility] 03/03/2017 04:40) Final results Test Result Flag Units (Reference) URINE NEGATIVE CBC w Diff: (DANIEL: 03/03/2017 02:40) ( [facility] 03/03/2017 02:59) Final results Test Result Flag Units (Reference) WHITE BLOOD COUNT 14.2 H K/uL (4.5-11.5) RED BLOOD COUNT 4.59 M/uL (4.00-5.20) HEMOGLOBIN 11.5 L gm/dL (12.0-16.0) HEMATOCRIT 36.6 % (36.0-46.0) MEAN CELL VOLUME 80 fL (80-100) MEAN CORPUSCULAR HGB 25 L pg (26-34) MEAN CORPUSCULAR HGB CONC 31 g/dL (31-37) RED CELL DISTRIBUTION WIDTH 17.0 H % (11.6-14.8) PLATELET COUNT 362 K/uL (150-400) NEUTROPHIL % 59.3 % (50-75) LYMPH % 27.0 % (25-40) MONO % 11.5 % (3-14) EOSINOPHIL % 1.7 % (0-4) BASOPHIL % 0.5 % (0-2) Lipase: (DANIEL: 03/03/2017 02:40) ( [facility] 03/03/2017 03:14) Final results Test Result Flag Units (Reference) LIPASE 154 U/L (73-393) AMYLASE 48 U/L (25-115) CMP: (DANIEL: 03/03/2017 02:40) ( [facility] 03/03/2017 03:07) Final results Test Result Flag Units (Reference) GLUCOSE 112 H mg/dL (70-110) BUN 14 mg/dL (7-18) CREATININE 0.9 mg/dL (0.6-1.3) Estimated GFR >60 mL/min Estimated GFR- >60 mL/min Note: Persistent reduction over 3 months in eGFR<60 mL/min/1.73 m2 defines CKD. Patients with eGFR values>=60 mL/min/1.73 m2 may also have CKD if evidence ofpersistent proteinuria. Additional information may be foundat www.kidney.org. SODIUM 140 mmol/L (136-145) POTASSIUM 4.3 mmol/L (3.5-5.1) CHLORIDE 104 mmol/L (98-107) CARBON DIOXIDE 29 mmol/L (21-32) CALCIUM 8.8 mg/dL (8.5-10.1) TOTAL PROTEIN 8.8 H g/dL (6.4-8.2) ALBUMIN 2.9 L g/dL (3.3-5.0) BILIRUBIN, TOTAL 0.2 mg/dL (0.0-1.0) ALKALINE PHOSPHATASE 120 H U/L (46-116) AST (SGOT) 21 U/L (15-37) ALT (SGPT) 31 U/L (12-78) Culture, Urine: (DANIEL: 03/03/2017 04:15) ( Msg[facility]d 03/05/2017 12:22) Final results Test Result Flag Units (Reference) CULTURE, URINE DATE: 03/05/17 PRELIM REPORT: FINAL REPORT -- ESCCOL QUANTITATIVE URINE GROWTH: 50,000 TO 100,000 CFU/mL AMOXICILLIN/CLAVULANATE AMPICILLIN S AMPICILLIN/SULBACTAM S CEFAZOLIN S CEFTRIAXONE S CEFEPIME S CEFUROXIME CIPROFLOXACIN S ERTAPENEM S GENTAMICIN S IMIPENEM S LEVOFLOXACIN S MEROPENEM S NITROFURANTOIN S TETRACYCLINE PIP/TAZO S TRIMETHOPRIM/SULFAMETHOXAZOLE S . PROGRESS AND PROCEDURES Course of Care: the patient is a 41-year-old female with past medical history significant for substance abuse and alkalosis and spondylitis presented for evaluation of epigastric abdominal pain. At this time differential diagnosis includes pericarditis, biliary colic, urinary tract infection. Patient will be evaluated with ultrasound of the epigastrium and right upper quadrant. Patient is agreeable to the treatment and plan. Patient reports intolerance to other pain medications such as morphine. Patient will be given Dilaudid. Patient is agreeable to the treatment and plan. The patient's vertigo was a markable for the findings above. Blood in the urinalysis is consistent with patient on her current menstrual cycle. Patient without any CVA tenderness. Did feel that this is renal colic in nature. We'll await urine cultures for treatment of UTI. No other findings noted on patient's examination. Patient is noted to have significant improvement with pain while here in the emergency department. Patient did need a second dose of pain medication as well as Benadryl for the nausea. because the patient's overall nontoxic appearance and repeat examination is benign as well as negative workup in the emergency department, did not the patient is admitted to the hospital or further emergency department workup/evaluation. Patient has a nonsurgical abdomen. I discussion with the patient in regards to possible causes for her abdominal pain. Discussed with the patient her workup. Emergency department including diagnosis, home care, follow-up, and return precautions. All questions have been answered. The patient expressed understanding of these instructions and was agreeable to them. CLINICAL IMPRESSION Acute epigastric abdominal pain. 03/03/2017 02:27 BP: 133/62. HR: 99. RR: 18. O2 saturation: 100%. Temp: 98.4 F. Pain level now: 9/10. Moderate nausea. Blood pressure normal. Oxygen saturation normal. INSTRUCTIONS Warnings: GENERAL WARNINGS: Return or contact your physician immediately if your condition worsens or changes unexpectedly, if not improving as expected, or if other problems arise. SPECIFICALLY, return if you develop pain, fever, vomiting, the inability to keep fluids down, blood in vomitus, blood in diarrhea, fainting or lightheadedness. Your Current Medications: CONTINUE TAKING THE FOLLOWING MEDICATIONS: None*. Prescription Medications: Zofran (orally disintegrating tablets) 4 mg: take 1 orally every 8 hours as needed for nausea and vomiting. Dispense ten (10). No refill. Substitution is permissible. Phenergan 25 mg suppositories: insert 1 rectally every 8 hours. Dispense twenty (20). No refill. Substitution is permissible. (as needed for break through nausea) Protonix 20 mg tablets: take 1 tablet orally every 12 hours for 2 weeks. Dispense twenty-eight (28). No refill. Substitution is permissible. Follow-up: Return to the emergency department as needed. Follow up with your doctor in three days. Reason for referral: recheck today's concerns. Summary of care provided to patient via paper. Screening today revealed the patient's blood pressure to be in the normal range. The patient should follow up with a primary care provider for blood pressure management. Understanding of the discharge instructions verbalized by patient. Follow-up with: [facility], , , [address], , [place], [address] Follow up in three days. Reason for referral: contact if you do not have a primary care doctor (PCP). Summary of care provided to patient via paper. (Electronically signed by Moody Finch Dr. 03/06/2017 15:12) Addenda for KENRICK WAGGONER VisitID: [id number] Date: 03/03/2017 03/04/2017 18:31 Phone call placed to patient, unable to leave message at [phone], "not accepting calls" message received from her phone. Pt will need to start Bactrim DS 1 po [id number] #14, prescribed by JOAQUIN Menjivar. (Electronically signed by Dalia Payan R.N. - 03/04/2017 18:31) 03/05/2017 10:31 attempted to contact pt again @[phone], the message is the person is not accepting calls, will have certified letter sent (Electronically signed by Bozena Hare R.N. - 03/05/2017 10:31) 03/05/2017 14:48 certified letter [id number] sent to patient. (Electronically signed by Virgen Terrazas R.N. - 03/05/2017 14:48)
--- NOTE | 2017-03-03 04:48 | ED NURSING NOTES ---
Clinical Report - Nurses [facility] [place] [address] 03/03/2017 2:21 Patient: KENRICK WAGGONER TRIAGE Triage time 02:27. Acuity: LEVEL 3. Chief Complaint: ABDOMINAL PAIN and VAGINAL BLEEDING. 02:49. Alert. --02:49 Zenon Tyson R.N. 02:27 03/03/17. BP: 133/62. HR: 99. RR: 18. O2 saturation: 100% on room air. Temp: 98.4 F (oral). Pain level now: 06/03. --02:49 Zenon Tyson R.N. Weight: 78.4 kg stated. Height/Length: 68 inches Per Patient. BMI: 26.3. --02:37 Zenon Tyson R.N. Medications None. --02:36 Zenon Tyson R.N. Allergies Penicillins. Sulfa Antibiotics. Tetanus Toxoids. --02:36 Zenon Tyson R.N. History Arrived by private vehicle. Historian: patient. Accompanied by friend. Primary physician (None). This started yesterday. Treatment DIRECTOR OF DONOR RELATIONS: Took Tylenol. PAST MEDICAL HX: Immunizations: up-to-date. Last normal menstrual period was 2 weeks ago. SOCIAL HX: Current every day heavy tobacco smoker- 1 pack per day. Occasional alcohol use. History of occasional drug use: heroin, methamphetamines, marijuana. No recent travel. No infectious disease exposure. ABUSE ASSESSMENT: No report of abuse. FALL RISK ASSESSMENT: Fall risk assessment completed. No fall risk identified. NUTRITIONAL RISK ASSESSMENT: The nutritional risk assessment revealed no deficiencies. FUNCTIONAL ASSESSMENT: Functional assessment: no impairments noted. LEARNING NEEDS ASSESSMENT: The learning needs assessment revealed no barriers. SKIN INTEGRITY ASSESSMENT: Skin integrity risk assessment completed. No skin integrity risk identified. --02:49 Zenon Tyson R.N. ( Patient reports the vaginal bleeding is much like a heavy period). --02:50 Zenon Tyson R.N. PROBLEMS: Ankylosing Spondylitis. Fibromyalgia. Cellulitis. --02:37 Zenon Tyson R.N. ADDITIONAL SURGERIES: Carpal Tunnel Surgery. Tonsillectomy. --02:37 Zenon Tyson R.N. Interventions ID band on patient. To treatment room. --02:49 Zenon Tyson R.N. PHYSICAL ASSESSMENT Ambulatory to room. Patient gowned. GENERAL / NEURO / PSYCH: Alert. Oriented X 4. HEENT: Mucous membranes are pink. RESPIRATORY: Respirations not labored. SKIN: Skin is warm and dry. --02:51 Zenon Tyson R.N. NURSING PROGRESS NOTES 02:28 Patient to restroom to obtain urine sample. --02:28 Zenon Tyson R.N. 02:33 Unable to provide urine sample. --02:34 Zenon Tyson R.N. 02:34. Two patient identifiers checked. Call light placed in reach. Bed placed in lowest position. Brakes of bed on. Patient ready for evaluation- chart flagged. --02:34 Zenon Tyson R.N. 02:44 03/03/2017 Site #1 started via IV in the left wrist with an 20g angiocath, with aseptic technique and good blood return; one attempt. Blood drawn: rainbow set. Labeled in the presence of the patient and sent to the lab. Saline lock flushed with 10 mL saline. --02:53 Zenon Tyson R.N. 02:53 03/03/2017 Started bag #1 1000 mL IV Fluids IV NS (Saline); at 1000 mL/hr over 1 hour(s) via site #1 --02:53 Zenon Tyson R.N. 03:19 03/03/2017 PHENERGAN (Promethazine HCl) IVP 25 mg given over 2 minute(s) via site #1. Allergies verified and confirmed 5 rights. IV patency established. IV site checked: no pain, redness, or swelling. IV flushed thoroughly pre- and post-medication administration. --03:24 Zenon Tyson R.N. 03:21 03/03/2017 Dilaudid (HYDROmorphone HCl PF) IVP 1 mg given over 2 minute(s) via site #1. Allergies verified, confirmed 5 rights and sedative warning given to the patient and patient's chief service dispatcher. IV patency established. IV site checked: no pain, redness, or swelling. IV flushed thoroughly pre- and post-medication administration. --03:24 Zenon Tyson R.N. 04:02 03/03/2017 IV Fluids IV NS Discontinued: bag #1 infused. Total amount infused: 1000 mL. IV patency established. IV site checked: no pain, redness, or swelling. IV flushed thoroughly. --04:07 Zenon Tyson R.N. 04:01 feminine pad and mesh undergarment given to pt. --04:13 Zenon Tyson R.N. 04:07 Socks placed on pt's feet, assisted to restroom to collect urine sample. --04:08 Zenon Tyson R.N. 04:15. Patient ID band checked for patient name and birthdate: patient confirmed. Clean catch urine collected with return of yellow-colored clear urine; sample sent to lab for urinalysis and HCG. Specimen labeled in the presence of the patient. --04:22 Zenon Tyson R.N. 04:18 03/03/2017 Dilaudid (HYDROmorphone HCl PF) IVP 1 mg given over 2 minute(s) via site #1. Allergies verified, confirmed 5 rights and sedative warning given to the patient. IV patency established. IV site checked: no pain, redness, or swelling. IV flushed thoroughly pre- and post-medication administration. --04:22 Zenon Tyson R.N. 04:20 03/03/2017 Benadryl (DiphenhydrAMINE HCl) IVP 25 mg given over 2 minute(s) via site #1. Allergies verified, confirmed 5 rights and sedative warning given to the patient. IV patency established. IV site checked: no pain, redness, or swelling. IV flushed thoroughly pre- and post-medication administration. --04:23 Zenon Tyson R.N. 04:20 dental equipment technician with pt for exam. --04:23 Zenon Tyson R.N. 05:06. The patient is calm and resting quietly. Overall patient status is improved- she states feels better. SKIN: Skin is warm and dry. Skin color within normal limits. --05:11 Zenon Tyson R.N. DISPOSITION / DISCHARGE 04:59 03/03/2017 Site #1 removed upon discharge. Catheter intact. Bandage applied. --05:03 Zenon Tyson R.N. Departure time: 05:10. Condition at departure: stable. No learning barriers present. Discharge instructions provided and reviewed with the patient. Reviewed medication(s) side effects, precautions, dosing and course information. Prescription(s) given to the patient. Patient verbalized understanding. Written instructions provided in Romanian. The patient was discharged home and accompanied by chief service dispatcher. She left the Emergency Department ambulatory and via private vehicle. Threat Monitoring Analyst driving. FALL RISK ASSESSMENT: Fall risk assessment completed. No fall risk identified. --05:10 Zenon Tyson R.N. 04:58 03/03/17. BP: 134/79. HR: 90. RR: 15. O2 saturation: 99% on room air. Pain level now: 11/03. --05:10 Zenon Tyson R.N. Locked/Released at 03/03/2017 5:14 by Zenon Tyson R.N.
--- NOTE | 2017-03-03 05:46 | DIAGNOSTIC IMAGING REPORT ---
PROCEDURE: US ABDOMEN ULTRASOUND-LIMITED INDICATION: RUQ PAIN TECHNIQUE: Clayton scale and color Doppler sonographic images of the abdomen were obtained. COMPARISON: None. FINDINGS: Gallbladder is normal. No evidence of gallstones. Common duct is normal (6 mm). Portions of the liver, pancreas, aorta, and right kidney are seen, and are normal. IMPRESSION: 1. Negative ultrasound of the gallbladder and right upper quadrant.
--- NOTE | 2017-03-06 15:13 | ED MED RECONCILIATION SUMMARY ---
Patient: KENRICK WAGGONER Medication Reconciliation Report [facility] VisitID: [id number] [address] [place] [address] 41y, F Registration Date/Time: 03/03/2017 Weight: 78.4 kg Height/Length: 68 in. BMI: 26.3 ALLERGIES: Penicillins, Sulfa Antibiotics, Tetanus Toxoids The patient's Home Medications are listed below: NONE. The source(s) of the original Home Medication information: Not obtained. The following Medications were given to the patient in the Emergency Department: IV NS IV Fluids bolus 0, then 1000 mL/hr, administered: 03/03/2017 2:53:00 AM PHENERGAN [IVP] IVP 25 mg, administered: 03/03/2017 3:19:00 AM Dilaudid [IVP] IVP 1 mg, administered: 03/03/2017 3:21:00 AM Dilaudid [IVP] IVP 1 mg, administered: 03/03/2017 4:18:00 AM Benadryl [IVP] IVP 25 mg, administered: 03/03/2017 4:20:00 AM The following Medications were prescribed to the patient: Zofran (orally disintegrating tablets) 4 mg: take 1 orally every 8 hours as needed for nausea and vomiting. Dispense ten (10). No refill. Substitution is permissible. -- Moody Finch Dr. Phenergan 25 mg suppositories: insert 1 rectally every 8 hours. Dispense twenty (20). No refill. Substitution is permissible.(as needed for break through nausea) -- Moody Finch Dr. Protonix 20 mg tablets: take 1 tablet orally every 12 hours for 2 weeks. Dispense twenty-eight (28). No refill. Substitution is permissible. -- Moody Finch Dr.
--- NOTE | 2017-03-06 15:13 | ED MAR SUMMARY ---
..... Medication Administration Record [facility] [address] [place] [address] Patient: KENRICK WAGGONER Visit ID: [id number] 41y, F Weight: 78.4 kg Height/Length: 68 in BMI: 26.3 ALLERGIES: Penicillins, Sulfa Antibiotics, Tetanus Toxoids Start 02:53 03/03/2017 Zenon Tyson R.N., Stop 04:02 03/03/2017 Zenon Tyson R.N. Medication Administered: IV NS (SALINE), Dose: IV Fluids over 1 hour(s), Rate: 1000 mL/hr, Dispensed: 1000 mL bag, Site: #1 left wrist. Medication Ordered: IV NS : initial bolus none -, then 1000 mL/hr (NOW). Given 03:19 03/03/2017 Zenon Tyson R.N. Medication Administered: PHENERGAN [IVP] (PROMETHAZINE HCL), Dose: 25 mg IVP over 2 minute(s), Site: #1 left wrist. Medication Ordered: Phenergan IV 25 mg (HIGH ALERT MEDICATION). Given 03:21 03/03/2017 Zenon Tyson R.N. Medication Administered: DILAUDID [IVP] (HYDROMORPHONE HCL PF), Dose: 1 mg IVP over 2 minute(s), Site: #1 left wrist. Medication Ordered: Dilaudid IV 1 mg (HIGH ALERT MEDICATION, NOW). Given 04:18 03/03/2017 Zenon Tyson R.N. Medication Administered: DILAUDID [IVP] (HYDROMORPHONE HCL PF), Dose: 1 mg IVP over 2 minute(s), Site: #1 left wrist. Medication Ordered: Dilaudid IV 1 mg (HIGH ALERT MEDICATION, NOW). Given 04:20 03/03/2017 Zenon Tyson R.N. Medication Administered: BENADRYL [IVP] (DIPHENHYDRAMINE HCL), Dose: 25 mg IVP over 2 minute(s), Site: #1 left wrist. Medication Ordered: Benadryl IV 25 mg (NOW).
--- NOTE | 2017-03-06 15:13 | ED DISCHARGE INSTRUCTIONS ---
Patient: KENRICK WAGGONER General Instructions [facility] VisitID: [id number] [address] [place] [address] 41y, F Registration Date/Time: 03/03/2017 Acute epigastric abdominal pain. 03/03/2017 02:27 BP: 133/62. HR: 99. RR: 18. O2 saturation: 100%. Temp: 98.4 F. Pain level now: 9/10. Moderate nausea. Blood pressure normal. Oxygen saturation normal. INSTRUCTIONS Warnings: GENERAL WARNINGS: Return or contact your physician immediately if your condition worsens or changes unexpectedly, if not improving as expected, or if other problems arise. SPECIFICALLY, return if you develop pain, fever, vomiting, the inability to keep fluids down, blood in vomitus, blood in diarrhea, fainting or lightheadedness. Your Current Medications: CONTINUE TAKING THE FOLLOWING MEDICATIONS: None*. Prescription Medications: Zofran (orally disintegrating tablets) 4 mg: take 1 orally every 8 hours as needed for nausea and vomiting. Dispense ten (10). No refill. Substitution is permissible. Phenergan 25 mg suppositories: insert 1 rectally every 8 hours. Dispense twenty (20). No refill. Substitution is permissible. (as needed for break through nausea) Protonix 20 mg tablets: take 1 tablet orally every 12 hours for 2 weeks. Dispense twenty-eight (28). No refill. Substitution is permissible. Follow-up: Return to the emergency department as needed. Follow up with your doctor in three days. Reason for referral: recheck today's concerns. Summary of care provided to patient via paper. Screening today revealed the patient's blood pressure to be in the normal range. The patient should follow up with a primary care provider for blood pressure management. Understanding of the discharge instructions verbalized by patient. Follow-up with: [facility], , , [address], [place], [id number] Follow up in three days. Reason for referral: contact if you do not have a primary care doctor (PCP). Summary of care provided to patient via paper. ADDITIONAL INFORMATION Abdominal Pain, Unknown Cause (Female) The exact cause of your abdominal (stomach) pain is not certain. This does not mean that this is something to worry about, or the right tests were not done. Everyone likes to know the exact cause of the problem, but sometimes with abdominal pain, there is no clear-cut cause, and this could be a good thing. The good news is that your symptoms can be treated, and you will feel better. Your condition does not seem serious now; however, sometimes the signs of a serious problem may take more time to appear. For this reason,it is important for you to watch for any new symptoms, problems,or worsening of your condition. Over the next few days, the abdominal pain may come and go, or be continuous. Other common symptoms can include nausea and vomiting. Sometimes it can be difficult to tell if you feel nauseous, you may just feel bad and not associate that feeling with nausea. Constipation, diarrhea, and a fever may go along with the pain. The pain may continue even if treated correctly over the following days. Depending on how things go, sometimes the cause can become clear and may require further or different treatment. Additional evaluations, medications, or tests may be needed. Home care Your health care provider may prescribe medications for pain, symptoms, or an infection. Follow the health care provider's instructions for taking these medications. General care Rest until your next exam. No strenuous activities. Try to find positions that ease discomfort. A small pillow placed on the abdomen may help relieve pain. Something warm on your abdomen (such as a heating pad) may help, but be careful not to burn yourself. Diet Do not force yourself to eat, especially if having cramps, vomiting, or diarrhea. Water is important so you do not get dehydrated. Soup may also be good. Sports drinks may also help, especially if they are not too acidic. Make sure you don't drink sugary drinks as this can make things worse. Take liquids in small amounts. Do not guzzle them. Caffeine sometimes makes the pain and cramping worse. Avoid dairy products if you have vomiting or diarrhea. Don't eat large amounts at a time. Wait a few minutes between bites. Eat a diet low in fiber (called a low-residue diet). Foods allowed include refined breads, white rice, fruit and vegetable juices without pulp, tender meats. These foods will pass more easily through the intestine. Avoid whole-grain foods, whole fruits and vegetables, meats, seeds and nuts, fried or fatty foods, dairy, alcohol and spicy foods until your symptoms go away. Follow-up care Follow up with your health care provider as instructed, or if your pain does not begin to improve in the next 24 hours. When to seek medical care Seek prompt medical care if any of the following occur: Pain gets worse or moves to the right lower abdomen New or worsening vomiting or diarrhea Swelling of the abdomen Unable to pass stool for more than three days Fever of 100.4F (38C) or higher, or as directed by your healthcare provider. Blood in vomit or bowel movements (dark red or black color) Jaundice (yellow color of eyes and skin) Weakness, dizziness Chest, arm, back, neck or jaw pain Unexpected vaginal bleeding or missed period Call 911 Call emergency services if any of the following occur: Trouble breathing Confusion Fainting or loss of consciousness Rapid heart rate Seizure Ondansetron Oral disintegrating tablet What is this medicine? ONDANSETRON (on MAGGIE se amer[place]) is used to treat nausea and vomiting caused by chemotherapy. It is also used to prevent or treat nausea and vomiting after surgery. How should I use this medicine? These tablets are made to dissolve in the mouth. Do not try to push the tablet through the foil backing. With dry hands, peel away the foil backing and gently remove the tablet. Place the tablet in the mouth and allow it to dissolve, then swallow. While you may take these tablets with water, it is not necessary to do so. Talk to your mis director regarding the use of this medicine in children. Special care may be needed. What side effects may I notice from receiving this medicine? Side effects that you should report to your doctor or health child care centre manager as soon as possible: allergic reactions like skin rash, itching or hives, swelling of the face, lips, or tongue breathing problems dizziness fast or irregular heartbeat feeling faint or lightheaded, falls fever and chills swelling of the hands and feet tightness in the chest Side effects that usually do not require medical attention (report to your doctor or health child care centre manager if they continue or are bothersome): constipation or diarrhea headache What may interact with this medicine? Do not take this medicine with any of the following medications: -apomorphine -cisapride -dofetilide -dronedarone -pimozide -thioridazine -ziprasidone This medicine may also interact with the following medications: -carbamazepine -phenytoin -rifampicin -tramadol -other medicines that prolong the QT interval (cause an abnormal heart rhythm) What if I miss a dose? If you miss a dose, take it as soon as you can. If it is almost time for your next dose, take only that dose. Do not take double or extra doses. Where should I keep my medicine? Keep out of the reach of children. Store between 2 and 30 degrees C (36 and 86 degrees F). Throw away any unused medicine after the expiration date. What should I tell my health care provider before I take this medicine? They need to know if you have any of these conditions: heart disease history of irregular heartbeat liver disease low levels of magnesium or potassium in the blood an unusual or allergic reaction to ondansetron, granisetron, other medicines, foods, dyes, or preservatives or trying to get breast-feeding What should I watch for while using this medicine? Check with your doctor or health child care centre manager as soon as you can if you have any sign of an allergic reaction. Promethazine Hydrochloride Oral tablet What is this medicine? PROMETHAZINE (proe METH a zeen) is an antihistamine. It is used to treat allergic reactions and to treat or prevent nausea and vomiting from illness or motion sickness. It is also used to make you sleep before surgery, and to help treat pain or nausea after surgery. How should I use this medicine? Take this medicine by mouth with a glass of water. Follow the directions on the prescription label. Take your doses at regular intervals. Do not take your medicine more often than directed. Talk to your mis director regarding the use of this medicine in children. Special care may be needed. This medicine should not be given to infants and children younger than 2 years old. What side effects may I notice from receiving this medicine? Side effects that you should report to your doctor or health child care centre manager as soon as possible: blurred vision irregular heartbeat, palpitations or chest pain muscle or facial twitches pain or difficulty passing urine seizures skin rash slowed or shallow breathing unusual bleeding or bruising yellowing of the eyes or skin Side effects that usually do not require medical attention (report to your doctor or health child care centre manager if they continue or are bothersome): headache nightmares, agitation, nervousness, excitability, not able to sleep (these are more likely in children) stuffy nose What may interact with this medicine? Do not take this medicine with any of the following medications: medicines called MAO Inhibitors like Nardil, Parnate, Marplan, Eldepryl other phenothiazines like trimethobenzamide This medicine may also interact with the following medications: barbiturates like phenobarbital bromocriptine certain antidepressants certain antihistamines used in allergy or cold medicines epinephrine levodopa medicines for sleep medicines for mental problems and psychotic disturbances medicines for movement abnormalities as in Parkinson's disease, or for gastrointestinal problems muscle relaxants prescription pain medicines What if I miss a dose? If you miss a dose, take it as soon as you can. If it is almost time for your next dose, take only that dose. Do not take double or extra doses. Where should I keep my medicine? Keep out of the reach of children. Store at room temperature, between 20 and 25 degrees C (68 and 77 degrees F). Protect from light. Throw away any unused medicine after the expiration date. What should I tell my health care provider before I take this medicine? They need to know if you have any of these conditions: glaucoma high blood pressure or heart disease kidney disease liver disease lung or breathing disease, like asthma prostate trouble pain or difficulty passing urine seizures an unusual or allergic reaction to promethazine or phenothiazines, other medicines, foods, dyes, or preservatives or trying to get breast-feeding What should I watch for while using this medicine? Tell your doctor or health child care centre manager if your symptoms do not start to get better in 1 to 2 days. You may get drowsy or dizzy. Do not drive, use machinery, or do anything that needs mental alertness until you know how this medicine affects you. To reduce the risk of dizzy or fainting spells, do not stand or sit up quickly, especially if you are an older patient. Alcohol may increase dizziness and drowsiness. Avoid alcoholic drinks. Your mouth may get dry. Chewing sugarless gum or sucking hard candy, and drinking plenty of water may help. Contact your doctor if the problem does not go away or is severe. This medicine may cause dry eyes and blurred vision. If you wear contact lenses you may feel some discomfort. Lubricating drops may help. See your eye doctor if the problem does not go away or is severe. This medicine can make you more sensitive to the sun. Keep out of the sun. If you cannot avoid being in the sun, wear protective clothing and use sunscreen. Do not use sun lamps or tanning beds/booths. If you are diabetic, check your blood-sugar levels regularly. Pantoprazole Sodium Gastro-resistant tablet What is this medicine? PANTOPRAZOLE (izquierdo TOE pra zole) prevents the production of acid in the stomach. It is used to treat gastroesophageal reflux disease (GERD), inflammation of the esophagus, and Gemini-Sellers syndrome. How should I use this medicine? Take this medicine by mouth. Swallow the tablets whole with a drink of water. Follow the directions on the prescription label. Do not crush, break, or chew. Take your medicine at regular intervals. Do not take your medicine more often than directed. Talk to your mis director regarding the use of this medicine in children. While this drug may be prescribed for children as young as 5 years for selected conditions, precautions do apply. What side effects may I notice from receiving this medicine? Side effects that you should report to your doctor or health child care centre manager as soon as possible: allergic reactions like skin rash, itching or hives, swelling of the face, lips, or tongue bone, muscle or joint pain breathing problems chest pain or chest tightness dark yellow or brown urine dizziness fast, irregular heartbeat feeling faint or lightheaded fever or sore throat muscle spasm palpitations redness, blistering, peeling or loosening of the skin, including inside the mouth seizures tremors unusual bleeding or bruising unusually weak or tired yellowing of the eyes or skin Side effects that usually do not require medical attention (Report these to your doctor or health child care centre manager if they continue or are bothersome.): constipation diarrhea dry mouth headache nausea What may interact with this medicine? Do not take this medicine with any of the following medications: atazanavir nelfinavir This medicine may also interact with the following medications: ampicillin delavirdine digoxin diuretics iron salts medicines for fungal infections like ketoconazole, itraconazole and voriconazole warfarin What if I miss a dose? If you miss a dose, take it as soon as you can. If it is almost time for your next dose, take only that dose. Do not take double or extra doses. Where should I keep my medicine? Keep out of the reach of children. Store at room temperature between 15 and 30 degrees C (59 and 86 degrees F). Protect from light and moisture. Throw away any unused medicine after the expiration date. What should I tell my health care provider before I take this medicine? They need to know if you have any of these conditions: liver disease low levels of magnesium in the blood an unusual or allergic reaction to omeprazole, lansoprazole, pantoprazole, rabeprazole, other medicines, foods, dyes, or preservatives or trying to get breast-feeding What should I watch for while using this medicine? It can take several days before your stomach pain gets better. Check with your doctor or health child care centre manager if your condition does not start to get better, or if it gets worse. You may need blood work done while you are taking this medicine. You have been given the following additional information: Abdominal Pain, Unknown Cause, (Female) Ondansetron Oral disintegrating tablet Promethazine Hydrochloride Oral tablet Pantoprazole Sodium Gastro-resistant tablet (Electronically signed by Moody Finch Dr. 03/06/2017 15:12)
--- NOTE | 2017-03-06 15:13 | ED MED RECONCILIATION SUMMARY ---
Patient: KENRICK WAGGONER Medication Reconciliation Report [facility] VisitID: [id number] [address] [place] [address] 41y, F Registration Date/Time: 03/03/2017 Weight: 78.4 kg Height/Length: 68 in. BMI: 26.3 ALLERGIES: Penicillins, Sulfa Antibiotics, Tetanus Toxoids The patient's Home Medications are listed below: NONE. The source(s) of the original Home Medication information: Not obtained. The following Medications were given to the patient in the Emergency Department: IV NS IV Fluids bolus 0, then 1000 mL/hr, administered: 03/03/2017 2:53:00 AM PHENERGAN [IVP] IVP 25 mg, administered: 03/03/2017 3:19:00 AM Dilaudid [IVP] IVP 1 mg, administered: 03/03/2017 3:21:00 AM Dilaudid [IVP] IVP 1 mg, administered: 03/03/2017 4:18:00 AM Benadryl [IVP] IVP 25 mg, administered: 03/03/2017 4:20:00 AM The following Medications were prescribed to the patient: Zofran (orally disintegrating tablets) 4 mg: take 1 orally every 8 hours as needed for nausea and vomiting. Dispense ten (10). No refill. Substitution is permissible. -- Moody Finch Dr. Phenergan 25 mg suppositories: insert 1 rectally every 8 hours. Dispense twenty (20). No refill. Substitution is permissible.(as needed for break through nausea) -- Moody Finch Dr. Protonix 20 mg tablets: take 1 tablet orally every 12 hours for 2 weeks. Dispense twenty-eight (28). No refill. Substitution is permissible. -- Moody Finch Dr.
--- NOTE | 2017-03-06 15:13 | ED MAR SUMMARY ---
..... Medication Administration Record [facility] [address] [place] [address] Patient: KENRICK WAGGONER Visit ID: [id number] 41y, F Weight: 78.4 kg Height/Length: 68 in BMI: 26.3 ALLERGIES: Penicillins, Sulfa Antibiotics, Tetanus Toxoids Start 02:53 03/03/2017 Zenon Tyson R.N., Stop 04:02 03/03/2017 Zenon Tyson R.N. Medication Administered: IV NS (SALINE), Dose: IV Fluids over 1 hour(s), Rate: 1000 mL/hr, Dispensed: 1000 mL bag, Site: #1 left wrist. Medication Ordered: IV NS : initial bolus none -, then 1000 mL/hr (NOW). Given 03:19 03/03/2017 Zenon Tyson R.N. Medication Administered: PHENERGAN [IVP] (PROMETHAZINE HCL), Dose: 25 mg IVP over 2 minute(s), Site: #1 left wrist. Medication Ordered: Phenergan IV 25 mg (HIGH ALERT MEDICATION). Given 03:21 03/03/2017 Zenon Tyson R.N. Medication Administered: DILAUDID [IVP] (HYDROMORPHONE HCL PF), Dose: 1 mg IVP over 2 minute(s), Site: #1 left wrist. Medication Ordered: Dilaudid IV 1 mg (HIGH ALERT MEDICATION, NOW). Given 04:18 03/03/2017 Zenon Tyson R.N. Medication Administered: DILAUDID [IVP] (HYDROMORPHONE HCL PF), Dose: 1 mg IVP over 2 minute(s), Site: #1 left wrist. Medication Ordered: Dilaudid IV 1 mg (HIGH ALERT MEDICATION, NOW). Given 04:20 03/03/2017 Zenon Tyson R.N. Medication Administered: BENADRYL [IVP] (DIPHENHYDRAMINE HCL), Dose: 25 mg IVP over 2 minute(s), Site: #1 left wrist. Medication Ordered: Benadryl IV 25 mg (NOW).
== END 2017-03-03 06:01 | disposition home or self-care (01) ==
LOC: ED SRH 02:20
DX: R10.13 Epigastric pain (principal); R11.0 Nausea
CPT/HCPCS: 90004; 90100; 90148; 90469; 92235; 92530; 93070; 95059